=== PATIENT | male | born 1985 | race Caucasian/White ===

== ENCOUNTER 2017-12-01 23:33 | Inpatient (IN) | payer SELFPAY ==
[2017-12-02 00:30] LABS: ADD MAN DIFF? NO
[2017-12-02] MEDS: MORPHINE SULFATE 10 MG/ML VIAL. IV (00:30)
[2017-12-02] MEDS: ONDANSETRON PF 4 MG/2 ML VIAL. IV (00:31)
[2017-12-02 00:34] LABS: BASO # 0.1 x10^3/uL (0.0-0.2); BASO % 1 % (0-3); EOS # 0.2 x10^3/uL (0.0-0.7); EOS % 1 % (0-3); HEMATOCRIT 39.8 % (39.0-53.0); HEMOGLOBIN 13.7 g/dL (13.0-17.5); LYMPH # 4.2 x10^3/uL (1.0-4.8); LYMPH % 27 % (24-48); MEAN CORPUSCULAR HEMOGLOBIN 31 pg (25-35); MEAN CORPUSCULAR HGB CONC 35 g/dL (31-37); MEAN CORPUSCULAR VOLUME 89 fL (79-100); MONO # 1.4 x10^3/uL (0.0-1.1); MONO % 9 % (0-9); NEUT # 9.7 x10^3uL (1.8-7.7); NEUT % 62 % (31-73); PLATELET COUNT 323 x10^3/uL (140-400); RED BLOOD COUNT 4.49 x10^6/uL (4.30-5.70); RED CELL DISTRIBUTION WIDTH 12.9 % (11.5-14.5); WHITE BLOOD COUNT 15.7 x10^3/uL (4.0-11.0)
[2017-12-02] MEDS: IV NORMAL SALINE 1000ML BAG 1,000 ML IV (00:36)
[2017-12-02] MEDS: ASPIRIN CHEWABLE 81 MG TABLET. PO (00:42)
[2017-12-02 00:49] LABS: ANION GAP 9 (6-14); BLOOD UREA NITROGEN 12 mg/dL (8-26); BUN/CREATININE RATIO 12 (6-20); CALCIUM 8.6 mg/dL (8.5-10.1); CARBON DIOXIDE 28 mmol/L (21-32); CHLORIDE 100 mmol/L (98-107); GFR 86.1; GLUCOSE 102 mg/dL (70-99); POTASSIUM 3.8 mmol/L (3.5-5.1); SODIUM 137 mmol/L (136-145)
[2017-12-02 00:55] LABS: ALBUMIN 3.4 g/dL (3.4-5.0); ALBUMIN/GLOBULIN RATIO 0.7 (1.0-1.7); ALK PHOS 44 U/L (46-116); AST (SGOT) 21 U/L (15-37); TOTAL BILIRUBIN 0.3 mg/dL (0.2-1.0)
[2017-12-02 00:59] LABS: TROPONINI < 0.017 ng/mL (0.000-0.055)
[2017-12-02 01:06] LABS: ALT (SGPT) 27 U/L (16-63)
[2017-12-02] MEDS: fentaNYL PF VIAL 100 MCG/2 ML VIAL IV ×2 (01:10→03:15)
[2017-12-02] MEDS ORDERED: CONTRAST GIVEN. MC (01:45)
[2017-12-02] MEDS: IOHEXOL 300 MG/ML 100ML VIAL. IV (01:55)
[2017-12-02] MEDS: oxyCODONE/APAP 5/325 1 TAB TABLET PO (03:15)
[2017-12-02] MEDS ORDERED: MORPHINE SULFATE 2 MG/ML DISP.SYRIN. IV (04:45)
[2017-12-02] MEDS ORDERED: ONDANSETRON PF 4 MG/2 ML VIAL. IV ×2 (04:45→08:45)
[2017-12-02] MEDS: AZITHROMYCIN 250 MG TABLET. PO (05:00)
[2017-12-02] MEDS: KETOROLAC 30 MG/ML INJ. IV (05:15)
[2017-12-02] MEDS ORDERED: IOHEXOL 300 MG/ML 100ML VIAL. (06:04)
[2017-12-02] MEDS ORDERED: guaiFENesin DM 200MG/20MG 10 ML SYRUP PO (08:45)
[2017-12-02] MEDS ORDERED: levOFLOXacin PER PHARMACY. MC (08:45)
[2017-12-02] MEDS ORDERED: IBUPROFEN 600 MG TABLET. PO (08:45)
[2017-12-02] MEDS ORDERED: ACETAMINOPHEN 500 MG TABLET PO (08:45)
[2017-12-02] MEDS: IPRATRPIUM/ALBUTEROL 0.5/2.5MG 3 ML NEBU. NEB ×4 (08:50→19:42)
[2017-12-02] MEDS: ACETAMINOPHEN 500 MG TABLET PO (09:00)
[2017-12-02] MEDS: RIVAROXABAN 15 MG TABLET. PO ×2 (09:02→19:51)
[2017-12-02] MEDS: HYDROcodone/APAP 5/325MG 1 TAB TABLET PO ×2 (09:02→16:18)
[2017-12-02 10:22] LABS: MYCOPLASMA PATIENT NEGATIVE (NEGATIVE); NEGATIVE OBC MYCO NEG; POSITIVE OBC MYCO POS
[2017-12-02] MEDS: CYCLOBENZAPRINE 10 MG TABLET. PO (19:51)
[2017-12-03 08:07] LABS: ADD MAN DIFF? NO
[2017-12-03 08:08] LABS: BASO # 0.1 x10^3/uL (0.0-0.2); BASO % 1 % (0-3); EOS # 0.3 x10^3/uL (0.0-0.7); EOS % 3 % (0-3); HEMATOCRIT 37.6 % (39.0-53.0); HEMOGLOBIN 12.4 g/dL (13.0-17.5); LYMPH # 2.5 x10^3/uL (1.0-4.8); LYMPH % 27 % (24-48); MEAN CORPUSCULAR HEMOGLOBIN 30 pg (25-35); MEAN CORPUSCULAR HGB CONC 33 g/dL (31-37); MEAN CORPUSCULAR VOLUME 90 fL (79-100); MONO # 0.7 x10^3/uL (0.0-1.1); MONO % 7 % (0-9); NEUT # 5.8 x10^3uL (1.8-7.7); NEUT % 62 % (31-73); PLATELET COUNT 255 x10^3/uL (140-400); RED BLOOD COUNT 4.18 x10^6/uL (4.30-5.70); RED CELL DISTRIBUTION WIDTH 13.4 % (11.5-14.5); WHITE BLOOD COUNT 9.3 x10^3/uL (4.0-11.0)
[2017-12-03] MEDS: IPRATRPIUM/ALBUTEROL 0.5/2.5MG 3 ML NEBU. NEB ×2 (08:29→11:37)
[2017-12-03 08:37] LABS: ANION GAP 6 (6-14); BLOOD UREA NITROGEN 8 mg/dL (8-26); CALCIUM 8.7 mg/dL (8.5-10.1); CARBON DIOXIDE 32 mmol/L (21-32); CHLORIDE 104 mmol/L (98-107); GFR 86.1; GLUCOSE 96 mg/dL (70-99); POTASSIUM 3.9 mmol/L (3.5-5.1); SODIUM 142 mmol/L (136-145)
[2017-12-03] MEDS: CYCLOBENZAPRINE 10 MG TABLET. PO (09:56)
[2017-12-03] MEDS: RIVAROXABAN 15 MG TABLET. PO (09:56)
== END 2017-12-03 14:35 | disposition home or self-care (01) | DRG 193 ==
LOC: ER 23:33 → 5 SOUTH 12-02 04:50
DX: J18.9 Pneumonia, unspecified organism (principal); J96.01 Acute respiratory failure with hypoxia; F17.210 Nicotine dependence, cigarettes, uncomplicated; Z86.718 Personal history of other venous thrombosis and embolism; Z79.01 Long term (current) use of anticoagulants
CPT/HCPCS: 36415; 71045; 71275; 80048; 80053; 84484; 85025; 86738; 87040; 93005; 94640; 94760; 96361; 96365; 96375; 96376; 99285; 99285-25; J0690; J1885; J1956; J2270; J2405; J3010; J7030; J7620; Q0144; Q9967